=== PATIENT | male | born 1990 | race Hispanic/Latino ===

== ENCOUNTER 2016-08-18 17:03 | Emergency (ER) | payer OTHER ==
[~2016-08-18] VITALS: Ht 177.8 cm; Wt 90.7 kg
[~2016-08-18 17:03] MED LIST: GABAPENTIN100 MG PO; IBUPROFEN800 MG PO; VALACYCLOVIR1000 MG PO
--- NOTE | 2016-08-18 18:38 | EKG ---
[facility] [address] [facility] [place], [place] [address] Signed Sinus bradycardia Otherwise normal ECG No previous ECGs available Confirmed by SEJAL WERNER MD ([id number]) on 08/18/2016 6:38:15 PM Electronically Signed By: SEJAL WERNER MD 08/18/16 1838 PATIENT NAME: MAGGI TENORIO Electrocardiogram DATE OF : 88 PHYSICIAN: SEJAL WERNER MD REPORT #: [id number] REPORT IS CONFIDENTIAL AND NOT TO BE RELEASED WITHOUT AUTHORIZATION
== END 2016-08-18 18:36 | disposition home or self-care (01) ==
LOC: ED 17:03
DX: S06.0X9A Concussion with loss of consciousness of unspecified duration, initial encounter (principal); R55 Syncope and collapse; Z88.8 Allergy status to other drugs, medicaments and biological substances; X58.XXXA Exposure to other specified factors, initial encounter; Y93.B2 Activity, push-ups, pull-ups, sit-ups; Y92.009 Unspecified place in unspecified non-institutional (private) residence as the place of occurrence of the external cause
CPT/HCPCS: 93005; 93010; 99284

== ENCOUNTER 2017-08-24 06:20 | Day surgery (SDC) | payer BC ==
--- NOTE | 2017-07-18 08:48 | NUR ---
PT NOTED TO BE LATE. HOME PHONE AND 'S PHONE CALLED. NO ANSWER ON EITHER LINE. ENDO ROOM NOTIFIED.
[~2017-08-24] VITALS: Ht 177.8 cm; Wt 88.5 kg
[~2017-08-24 06:20] MED LIST changes: +ADVIL LIQUI-GE200 MG PO
--- NOTE | 2017-08-24 08:00 | NUR ---
08/24/17 0800 Cecy Daley 0753 PT ARRIVED TO PACU RESP EVEN AND UNLABROED, ON 2L NC. PT WOKE UP AND WAS REORINETED TO PACU AND THEN PT BACK TO SLEEP. 0754 O2 REMOVED O2 SAT 100%.
--- NOTE | 2017-08-25 10:24 | OR ---
[facility] [address] [place], [place] [address] Signed DATE OF OPERATION: 08/24/2017 SURGEON: Salvador Cisse MD PREOPERATIVE DIAGNOSES: 1. Rectal bleeding. 2. Pruritus ani. POSTOPERATIVE DIAGNOSIS: Minimal internal hemorrhoids. PROCEDURE PERFORMED: Colonoscopy without biopsy. ESTIMATED BLOOD LOSS: None. INDICATIONS FOR PROCEDURE: Maggi is a 26-year-old gentleman, who has had some trouble with rectal bleeding over the last several years. He has had issues with his bowel movements several times in a month. He also has some burning and itching around the anus associated with heavy thick hair. 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 He is now out of the [employer] and and working for [employer]. He mentioned it to his primary care provider, who asked him to see me for consideration of a colonoscopy. He told me he is quite shy having been raised in multiple foster families. He really does not have information about his biologic family. In the office, we could not do a digital rectal exam because he was too shy and almost came off exam table. We did look around the outside of the anus and it looks fine, although in heavy hair. I explained to Maggi and his that we should try do a colonoscopy under sedation. We will make sure that there is nothing causing his rectal bleeding of concern. I gave him a pamphlet on colonoscopy. We looked at that together along with the risks including, but not limited to gas bloating, crampy abdominal pain, bleeding, perforation, requiring surgery, and missed diagnosis. We also discussed the need for IV conscious sedation. He had expressed understanding and wished to proceed. PROCEDURE NOTE: Maggi was taken into our endoscopy suite and placed in the left lateral decubitus position. He was given 9 mg of Versed and 150 mcg of fentanyl to cover the case. As before he is quite shy and he took some extra sedation just for the digital rectal exam. As expected, he has very good sphincter tone for a young man, otherwise no concerns. Electronically Signed By: SALVADOR CISSE MD 08/25/17 [facility] PATIENT NAME: MAGGI TENORIO OPERATIVE REPORT DATE OF : 88 REPORT #: [id number] PHYSICIAN: SALVADOR CISSE MD PCP: ALEXUS BRANDON REPORT IS CONFIDENTIAL AND NOT TO BE RELEASED WITHOUT AUTHORIZATION [facility] [address] [place], [place] [address] Signed The adult colonoscope was then introduced and advanced all around into the cecum under direct visualization of camera without difficulty. His prep was quite excellent. The scope was then slowly withdrawn. We saw no pathology throughout the entire colon or rectum. Upon retroflexion of the scope, he has very minimal standard internal hemorrhoid columns. After this, the gas was suctioned out and the colonoscope removed. Maggi tolerated the procedure quite well. RECOMMENDATIONS: Maggi to follow up in my office as needed. We have already discussed hemorrhoids and pruritus ani at length in the office. I have already given him our handouts from the office. If there are any other concerns or questions, he is certainly welcome to call the office. Otherwise, he can follow up as needed. Salvador Cisse MD ALB/MODL /[id number] cc: JYOTI Romano MD Patient's Chart Copies: ALEXUS BRANDON ANDREW L MD ~ Electronically Signed By: SALVADOR CISSE MD 08/25/17 1024 PATIENT NAME: MAGGI TENORIO OPERATIVE REPORT DATE OF : 88 REPORT #: [id number] PHYSICIAN: SALVADOR CISSE MD PCP: ALEXUS BRANDON REPORT IS CONFIDENTIAL AND NOT TO BE RELEASED WITHOUT AUTHORIZATION
== END 2017-08-24 08:50 | disposition home or self-care (01) ==
LOC: OPS 06:20 → DS 06:20 → OPS 06:45
PROVIDERS: Colon & Rectal Surgery
PROC: 0DJD8ZZ Inspection of Lower Intestinal Tract, Via Natural or Artificial Opening Endoscopic (ICD-10-PCS; principal; 2017-08-24 06:45)
DX: K64.8 Other hemorrhoids (principal); L29.0 Pruritus ani; Z88.8 Allergy status to other drugs, medicaments and biological substances
CPT/HCPCS: 99153; G0500; J2250; J3010

== ENCOUNTER 2022-10-31 06:45 | Emergency (ER) | payer OTHER ==
[~2022-10-31] VITALS: Ht 177.8 cm; Wt 93.9 kg
[2022-10-31 08:09] LABS: INFLUENZA B NAA NEGATIVE (NEGATIVE); RESPIRATORY SYNCYTIAL VIR NAA NEGATIVE (NEGATIVE)
[2022-10-31] MEDS ORDERED: ONDANSETRON ODT8 MG PO (08:36)
[2022-10-31 08:42] VITALS: BP 114/78
== END 2022-10-31 08:43 | disposition home or self-care (01) ==
LOC: ED 06:45
PROVIDERS: Emergency Medicine
DX: U07.1 COVID-19 (principal); I50.9 Heart failure, unspecified; Z88.8 Allergy status to other drugs, medicaments and biological substances
CPT/HCPCS: 87502; 99283; A9270; C9803; U0002